=== PATIENT | male | born 1955 | race Caucasian/White ===

== ENCOUNTER 2016-07-22 17:35 | Emergency (ER) | payer BC, OTHER ==
[2016-07-22] MEDS ORDERED: Sodium Chloride 0.9% 1,000 ML IV ONE (17:42)
--- NOTE | 2016-07-22 17:55 | EDM.PDOC ---
<Jerica Stokes - Last Filed: 07/22/16 18:39> ED HPI GI/ABDOMINAL - General Chief Complaint: Gastrointestinal Problem Stated Complaint: SICK/FEVER/VOMITING/TROUBLE BREATHING Time Seen by Provider: 07/22/16 17:50 - History of Present Illness INITIAL COMMENTS - FREE TEXT/NARRATIVE: This is Dr. Stokes dictating addendum note as a supervising physician on this case. I agree with a history and physical as above and the patient looks incredibly pale my evaluation but has no abdominal pain on palpation. Rectal exam was performed by the mid-level as above. In light of his low hemoglobin and his vitals we discussed transfer with the ER physician at [facility] Dr. Hylton at 1830. He accepts the patient in flight team is in route. I discussed with the patient and the at bedside at length the reversal agent for pradaxa and my concerns and administering it without adequate resuscitation and in light of no aggressive rectal bleeding. They agree with withholding this at this time. We will give a unit of O- blood and type and cross the patient and if that type and cross but is not available at the time of flight to arrival we will give another unit of O- for the transfer. Chest heart rate is or improved with IV fluids and we will also give Protonix and a Protonix drip. The patient is not nauseated. All other labs will be followed as available prior to the patient's transfer. His EKG does show A. fib with RVR but in light of his profound anemia lower frame from slowing him down at this time. Critical care time excluding procedures:31min Impression: GI bleed with profound anemia and history of productive use, A. fib with RVR likely secondary to GI bleed - Related Data Allergies/ADRs: Allergies Allergy/AdvReac Type Severity Reaction Status Date / Time No Known Allergies Allergy Verified 07/22/16 17:51 Home Meds: Home Meds Acetaminophen/HYDROcodone [[place] 325-5 MG] 1 - 2 tab PO Q4H 07/22/16 [History] Azithromycin [Zithromax] 1 tab PO DAILY 07/22/16 [History] Cyanocobalamin (Vitamin B12) [Vitamin B12] 1 tab PO DAILY 07/22/16 [History] Dabigatran Etexilate Mesylate [Pradaxa] 1 cap PO BID 07/22/16 [History] Furosemide [Lasix] 1 tab PO DAILY 07/22/16 [History] Insulin Glarg,Human.Rec.Analog [Lantus] 10 units SQ DAILY 07/22/16 [History] Meloxicam 1 tab PO DAILY 07/22/16 [History] Metoprolol Succinate [Toprol XL] 1 tab PO DAILY 07/22/16 [History] Tamsulosin [Flomax] 1 tab PO DAILY 07/22/16 [History] sitaGLIPtin Phos/Metformin HCl [Janumet 50-1,000 MG] 1 tab PO BID 07/22/16 [ History] Course - Vital Signs Last Recorded V/S: Last Vital Signs Temp 36.5 C 07/22/16 18:49 Pulse 98 07/22/16 18:49 Resp 18 07/22/16 18:49 BP 109/56 L 07/22/16 18:49 Pulse Ox 97 07/22/16 18:49 - Orders/Labs/Meds Orders: Active Orders 24 hr Category Date Time Status Cardiac Monitoring [RC] . DIRECTED Care 07/22/16 17:49 Active EKG Documentation Completion [RC] STAT Care 07/22/16 17:43 Active Oxygen Therapy, ED [RC] ASDIRECTED Care 07/22/16 17:49 Active Pulse Oximetry [RC] ASDIRECTED Care 07/22/16 17:49 Active Chest 1V Frontal [CR] Stat Exams 07/22/16 17:50 Taken PACKED CELLS [RED BLOOD CELLS LP] [BBK] Stat Lab 07/22/16 18:02 Results TYPE AND SCREEN [BBK] Stat Lab 07/22/16 18:02 Results UA W/MICROSCOPIC [URIN] Stat Lab 07/22/16 17:42 Uncollected Pantoprazole [Protonix IV] 80 mg Med 07/22/16 18:30 Active Sodium Chloride 0.9% [Normal Saline] 100 ml IV .Continuous Medication Orders Pantoprazole Sodium 80 mg/ (Sodium Chloride) 100 mls @ 10 mls/hr IV .Continuous YAMILEX Last Admin: 07/22/16 18:39 Dose: 10 mls/hr Labs: Laboratory Tests 07/22/16 07/22/16 07/22/16 Range/Units 18:02 18:02 18:02 WBC 22.13 H (4.0-11.0) K/uL RBC 1.93 L (4.50-5.90) M/uL Hgb 5.3 L (13.0-17.0) g/dL Hct 16.3 L (38.0-50.0) % MCV 84.5 (80.0-98.0) fL MCH 27.5 (27.0-32.0) pg MCHC 32.5 (31.0-37.0) g/dL RDW Std Deviation 49.2 (28.0-62.0) fl RDW Coeff of Carlos 16 H (11.0-15.0) % Plt Count 326 (150-400) K/uL MPV 10.20 (7.40-12.00) fL Add Manual Diff YES Neutrophils % (Manual) 63 (48.0-80.0) % Band Neutrophils % 29 % Lymphocytes % (Manual) 4 L (16.0-40.0) % Monocytes % (Manual) 4 (0.0-15.0) % Nucleated RBC % 0.0 /100WBC Absolute Seg Neuts 13.9 Band Neutrophils # 6.4 Lymphocytes # (Manual) 0.9 Monocytes # (Manual) 0.9 Nucleated RBCs # 0 K/uL INR 1.36 H (0.86-1.11) Sodium 135 L (136-146) mmol/L Potassium 5.0 (3.5-5.1) mmol/L Chloride 104 (98-110) mmol/L Carbon Dioxide 18 L (21-31) mmol/L BUN 45 H (6.0-23.0) mg/dL Creatinine 1.4 (0.6-1.5) mg/dL Est Cr Clr Drug Dosing 57.52 mL/min Estimated GFR (MDRD) 51.2 ml/min Glucose 515 H* (60-110) mg/dL Calcium 8.0 L (8.8-10.8) mg/dL Total Bilirubin 0.4 (0.1-1.5) mg/dL AST 11 (5-40) IU/L ALT 22 (8-54) IU/L Alkaline Phosphatase 102 (40-150) Total Protein 4.4 L (6.0-8.0) g/dL Albumin 2.1 L (3.4-4.8) g/dL Globulin 2.3 (2.0-3.5) g/dL Albumin/Globulin Ratio 0.9 L (1.3-2.8) Meds: Medications Generic Name Dose Route Start Last Admin Trade Name Marlon PRN Reason Stop Dose Admin Pantoprazole Sodium 80 mg/ 100 mls @ 10 mls/hr 07/22/16 18:30 07/22/16 18:39 Sodium Chloride IV 10 mls/hr .Continuous YAMILEX Administration Discontinued Medications Generic Name Dose Route Start Last Admin Trade Name Marlon PRN Reason Stop Dose Admin Sodium Chloride 1,000 mls @ 999 mls/hr 07/22/16 17:42 07/22/16 17:59 Normal Saline IV 07/22/16 18:42 999 mls/hr STAT ONE Administration Pantoprazole Sodium 80 mg 07/22/16 18:18 07/22/16 18:31 Protonix Iv IVPUSH 07/22/16 18:19 80 mg .BOLUS ONE Administration Departure - Departure Disposition: DC/Tfer to [facility] 02 Clinical Impression: GI bleed Qualifiers: GI bleed type/associated pathology: melena Qualified Code(s): K92.1 - Melena Anemia Qualifiers: Anemia type: unspecified type Qualified Code(s): D64.9 - Anemia, unspecified Referrals: PCP,None [Primary Care Provider] - Forms: ED Department Discharge <JeffKarlene - Last Filed: 07/22/16 18:45> ED HPI GI/ABDOMINAL - General Source of Information: Reports: Patient History Limitations: Reports: No limitations - History of Present Illness INITIAL COMMENTS - FREE TEXT/NARRATIVE: HISTORY AND PHYSICAL: History of present illness: [Comes to the ER complaining of not feeling well for the past 5-6 days. 2 days ago he felt that his symptoms may be mildly improving, but they quickly began to worsen again. He came in to the ER today due to 6 dark black and bloody stools throughout the day. He feels dizzy and weak. History of atrial fibrillation, Type 2 diabetes. His PCP is Dr. Senait Estrada at [facility]. Review of systems: As per history of present illness and below otherwise all systems reviewed and negative. Past medical history: As per history of present illness and as reviewed below otherwise noncontributory. Surgical history: As per history of present illness and as reviewed below otherwise noncontributory. Social history: No reported history of drug or alcohol abuse. Family history: As per history of present illness and as reviewed below otherwise noncontributory. Physical exam: HEENT: Atraumatic, normocephalic. conjunctival pallor present. mucous membranes moist, throat clear. neck supple, nontender, trachea midline. Lungs: Clear to auscultation, breath sounds equal bilaterally, chest nontender. Heart: S1S2, no S3-S4. Rate is irregularly irregular. negative for clicks, rubs , or JVD. Abdomen: Normoactive bowel sounds. Soft, nondistended, nontender. Negative for masses or hepatosplenomegaly. Negative for costovertebral tenderness. Skin: Pale, cool. No cyanosis. Pelvis: Stable nontender. Genitourinary: Deferred. Rectal: Normal sphincter tone. [id number]-[id number] dried blood present to buttocks. Dark purple colored blood on rectal exam. SFOB positive. Extremities: No cyanosis or edema to feet or lower legs. Neurovascular unremarkable. Neuro: Awake, alert, oriented. Cranial nerves II through XII unremarkable. Cerebellum unremarkable. Motor and sensory unremarkable throughout. Exam nonfocal. Diagnostics: [CBC, CMP, PT/INR, UA, type and cross 2 units, chest x-ray] Therapeutics: [X80 mg IV, 1 L normal saline IV, packed red blood cells x2 units] Impression: [GI bleed] Plan: [See Dr. Stokes's note] Definitive disposition and diagnosis as appropriate pending reevaluation and review of above. ED ROS GENERAL - Review of Systems Review Of Systems: ROS reveals no pertinent complaints other than HPI. ED EXAM, GI/ABD - Physical Exam Exam: See Below Course - Orders/Labs/Meds Labs: Laboratory Tests 07/22/16 07/22/16 07/22/16 Range/Units 18:02 18:02 18:02 WBC 22.13 H (4.0-11.0) K/uL RBC 1.93 L (4.50-5.90) M/uL Hgb 5.3 L (13.0-17.0) g/dL Hct 16.3 L (38.0-50.0) % MCV 84.5 (80.0-98.0) fL MCH 27.5 (27.0-32.0) pg MCHC 32.5 (31.0-37.0) g/dL RDW Std Deviation 49.2 (28.0-62.0) fl RDW Coeff of Carlos 16 H (11.0-15.0) % Plt Count 326 (150-400) K/uL MPV 10.20 (7.40-12.00) fL Add Manual Diff YES Neutrophils % (Manual) 63 (48.0-80.0) % Band Neutrophils % 29 % Lymphocytes % (Manual) 4 L (16.0-40.0) % Monocytes % (Manual) 4 (0.0-15.0) % Nucleated RBC % 0.0 /100WBC Absolute Seg Neuts 13.9 Band Neutrophils # 6.4 Lymphocytes # (Manual) 0.9 Monocytes # (Manual) 0.9 Nucleated RBCs # 0 K/uL INR 1.36 H (0.86-1.11) Sodium 135 L (136-146) mmol/L Potassium 5.0 (3.5-5.1) mmol/L Chloride 104 (98-110) mmol/L Carbon Dioxide 18 L (21-31) mmol/L BUN 45 H (6.0-23.0) mg/dL Creatinine 1.4 (0.6-1.5) mg/dL Est Cr Clr Drug Dosing 57.52 mL/min Estimated GFR (MDRD) 51.2 ml/min Glucose 515 H* (60-110) mg/dL Calcium 8.0 L (8.8-10.8) mg/dL Total Bilirubin 0.4 (0.1-1.5) mg/dL AST 11 (5-40) IU/L ALT 22 (8-54) IU/L Alkaline Phosphatase 102 (40-150) Total Protein 4.4 L (6.0-8.0) g/dL Albumin 2.1 L (3.4-4.8) g/dL Globulin 2.3 (2.0-3.5) g/dL Albumin/Globulin Ratio 0.9 L (1.3-2.8) Departure - Departure Time of Disposition: 18:55 Condition: good <Luis Enrique Gasca - Last Filed: 07/22/16 19:06> Course - Vital Signs Text/Narrative:: Case was discussed with Dr. Aracelis oreilly and receiving physician consensus regarding reversal of cardiac cell was determined seen as per activity assistant recommendation patient will be transferred as discussed
[2016-07-22] MEDS ORDERED: Pantoprazole 40 MG Vial IVPUSH ONE (18:18)
[2016-07-22] MEDS ORDERED: Pantoprazole 80 MG in Sodium Chloride 0.9% 100 ML IV SCH (18:30)
[2016-07-22] MEDS ORDERED: Insulin Regular, Human 100 Units/ML 10 ML Vial SUBCUT ONE (19:05)
[2016-07-22] MEDS ORDERED: Insulin Regular, Human 100 Units/ML 10 ML Vial ONE (19:07)
[2016-07-22] MEDS ORDERED: IDARUCIZUMAB 2.5 GM/50 ML IVPUSH ONE (19:20)
[2016-07-22 21:22] VITALS: BP 104/62
--- NOTE | 2016-07-23 10:42 | CR ---
.EXAM DATE: 07/22/16 PATIENT'S AGE: 61 Patient: DAVE NUNEZ Facility: [place], [place] Site . Site : [id number] Study: XRay Chest [id number]/[id number] 6:32:11 PM Ordering Physician: Doctor Pillai Final Report: INDICATION: Chest pain; rectal bleeding; dizzy; weakness. Comparison: Chest radiograph September 29, 2011. Technique: Portable AP chest. Findings: Minimal infiltrates at both lung bases. Normal size cardiac silhouette. No evidence of CHF or pleural effusion. No pneumothorax. Impression: Bibasilar infiltrates. Dictated by Gagan Ladd MD @ Jul 22 2016 6:32PM (Electronic Signature) Report Signed by Proxy and Original Signed Document filed in the Medical Record. MTDD
== END 2016-07-22 19:41 ==
LOC: MW.ED 17:35
DX: K92.2 Gastrointestinal hemorrhage, unspecified (principal); Z79.899 Other long term (current) drug therapy
CPT/HCPCS: 36430; 71010; 80053; 85025; 85610; 86850; 86900; 86901; 86920; 86921; 86922; 93005; 96361; 96365; 96372; 96375; 96376; 99285; C9113; J7030; J7040; P9016; 99291